=== PATIENT | male | born 1960 | race Caucasian/White ===

== ENCOUNTER → 2017-01-12 | Outpatient (CLI) | payer OTHER | END | disposition home or self-care (01) | DX: R26.2 Difficulty in walking, not elsewhere classified (principal); M25.561 Pain in right knee; M25.661 Stiffness of right knee, not elsewhere classified; M62.81 Muscle weakness (generalized); M17.11 Unilateral primary osteoarthritis, right knee | CPT/HCPCS: 97161 GP; 97530 GP ==

== ENCOUNTER 2017-02-14 22:04 | Inpatient (IN) | payer OTHER ==
[~2017-02-14] VITALS: Ht 175.3 cm; Wt 105.0 kg
[~2017-02-14 22:04] MED LIST: ARICEPT10 MG PO; BUSPAR10 MG PO; IRON325 M1 PO; LITE COAT ASPI325 M1 PO; LOTREL 5/201 CAPSULE PO; NEURONTIN300 MG PO; NEXIUM40 MG PO; PAXIL30 MG PO; PLAIN NIACIN500 MG PO; PRILOSEC20 MG PO; TOPAMAX50 MG PO; TRAZODONE HCL50 MG PO
[2017-02-15 06:17] VITALS: BP 127/75
[2017-02-15 10:13] LABS: HEMATOCRIT 44.2 % (38.0-50.0); HEMOGLOBIN 14.8 G/DL (12.5-16.6); MCH 30.4 PG (29.0-34.0); MCHC 33.5 G/DL (30.0-36.0); MCV 90.8 FL (86-99); PLATELET COUNT 190 K/uL (156-360); RBC DIS.WIDTH-CV 13.1 % (11.8-14.6); RBC DIS.WIDTH-SD 43.9 % (39-53); RED BLOOD COUNT 4.87 M/uL (4.00-5.50); WHITE BLOOD COUNT 6.6 K/uL (4.1-10.2)
[2017-02-15 11:37] VITALS: BP 136/69
[2017-02-15 13:33] VITALS: BP 130/76
[2017-02-15 15:27] VITALS: BP 152/75
[2017-02-15 20:00] VITALS: BP 151/90
[2017-02-16 00:27] VITALS: BP 148/81
[2017-02-16 04:07] VITALS: BP 148/74
[2017-02-16 06:52] LABS: CHLORIDE 97 MEQ/L (99-109); CREATININE 0.9 MG/DL (0.6-1.3); GFR ESTIMATE (CALCULATED) > 59 mL/min/ (58.99-99999); GLUCOSE 142 mg/dL (70-99); POTASSIUM 4.1 MEQ/L (3.7-5.4); UREA NITROGEN (BUN) 9 mg/dL (9-23)
[2017-02-16 06:53] LABS: HEMATOCRIT 45.6 % (38.0-50.0); HEMOGLOBIN 15.4 G/DL (12.5-16.6)
[2017-02-16 07:01] LABS: SODIUM 129 MEQ/L (136-147)
[2017-02-16 08:00] VITALS: BP 130/67
[2017-02-16 12:05] VITALS: BP 135/68
[2017-02-16 15:42] VITALS: BP 108/56
[2017-02-16 20:19] VITALS: BP 117/61
[2017-02-17] VITALS: BP 130/71
[2017-02-17 04:21] VITALS: BP 123/66
[2017-02-17 08:04] VITALS: BP 125/61
[2017-02-17] MEDS ORDERED: DOCUSATE SODIU100 MG PO (08:30)
[2017-02-17 08:31] LABS: HEMATOCRIT 43.3 % (38.0-50.0); HEMOGLOBIN 14.3 G/DL (12.5-16.6); MCV 88.9 FL (86-99)
[2017-02-17] MEDS ORDERED: LOVENOX40 MG/0.4 SC (08:31)
[2017-02-17] MEDS ORDERED: ENDOCET 5-3251 EACH PO (08:31)
[2017-02-17] MEDS ORDERED: CELECOXIB200 MG PO (08:31)
[2017-02-17 09:05] LABS: CHLORIDE 106 MEQ/L (99-109); CREATININE 0.8 MG/DL (0.6-1.3); GFR ESTIMATE (CALCULATED) > 59 mL/min/ (58.99-99999); GLUCOSE 154 mg/dL (70-99); POTASSIUM 3.6 MEQ/L (3.7-5.4); UREA NITROGEN (BUN) 13 mg/dL (9-23)
[2017-02-17 09:08] LABS: SODIUM 137 MEQ/L (136-147)
[2017-02-17 12:00] VITALS: BP 95/55
[2017-02-17 15:56] VITALS: BP 120/75
[2017-02-17 20:08] VITALS: BP 126/71
[2017-02-18] VITALS: BP 112/59
[2017-02-18 04:02] VITALS: BP 115/75
[2017-02-18 08:06] VITALS: BP 104/59
== END 2017-02-18 12:31 | DRG 470 ==
LOC: ENRESERV 22:04 → 2SOUTH 02-15 05:44 → 3WEST 02-15 11:05 → 2SOUTH 02-15 15:57 → 3WEST 02-18 12:31
PROVIDERS: Orthopaedic Surgery; Physician Assistant
PROC: 0SRC0J9 Replacement of Right Knee Joint with Synthetic Substitute, Cemented, Open Approach (ICD-10-PCS; principal; 2017-02-15)
DX: M17.11 Unilateral primary osteoarthritis, right knee (principal); I95.9 Hypotension, unspecified; I10 Essential (primary) hypertension; K21.9 Gastro-esophageal reflux disease without esophagitis; F17.200 Nicotine dependence, unspecified, uncomplicated; F41.9 Anxiety disorder, unspecified; R25.1 Tremor, unspecified
CPT/HCPCS: 73560; 80048; 85014; 85018; 85027; 93005; C1713; J0131; J0690; J1100; J1650; J2250; J2405; J2795; J7030; J7050